=== PATIENT | female | born 1930 | race Caucasian/White ===

== ENCOUNTER → 2016-11-19 | Outpatient (CLI) | payer MEDICARE, BC ==
[~2016-11-19] MED LIST: ACET-2321 PO; ATOR40TA PO; CALC-603 PO; CHOL100017 PO; DOCU-168 PO; FERR160T11 PO; FURO20TA4 PO; LEVO100T85 PO; MAGN400C PO; METO25TA6 PO; POTA10CA37 PO; SPIR50TA26 PO; VITA-302 PO
--- NOTE | 2016-11-19 09:15 | DI ---
Indication: ITS.REASON: M79.605 PAIN IN LEFT LEG PROCEDURE: HIP LEFT 2 VIEW: Encounter: Initial Comparison: None Findings: There is no acute fracture, dislocation or malalignment identified. Severe degenerative change in the hip joint with a [id number] appearance, subchondral sclerosis and cyst formation. Large ring osteophytes on the femoral head. Arterial vascular calcifications. Impression: Severe osteoarthritis. .
== END ==
LOC: IMA 08:47
PROVIDERS: ATTEND Internal Medicine
DX: M16.12 Unilateral primary osteoarthritis, left hip (principal); M79.605 Pain in left leg

== ENCOUNTER 2017-01-13 05:17 | Inpatient (IN) ==
[~2017-01-13 05:17] MED LIST changes: -ACET-2321 PO; -ATOR40TA PO; -CALC-603 PO; -CHOL100017 PO; +CYANOCOBALAMIN (B-12) 1,000mcg/ml INJECTION IM SCH; -DOCU-168 PO; +FAMOTIDINE PREMIX 20 MG/50 ML BAG IV ONE; -FERR160T11 PO; -FURO20TA4 PO; -LEVO100T85 PO; -MAGN400C PO; -METO25TA6 PO; -POTA10CA37 PO; -SPIR50TA26 PO; -VITA-302 PO
[2017-01-13] MEDS ORDERED: ACETAMINOPHEN 500 MG TABLET PO ONE (06:00)
[2017-01-13] MEDS ORDERED: NOZIN NASAL SWAB NAS ONE ×2 (06:00→10:52)
[2017-01-13] MEDS ORDERED: ONDANSETRON 4 MG/2 ML INJECTION IVP ONE (06:00)
[2017-01-13] MEDS ORDERED: CEFAZOLIN 1 G INJECTION IVP ONE (06:00)
[2017-01-13] MEDS ORDERED: LIDOCAINE 1% (10mg/ml) 10mL MDV SQ ONE (06:00)
[2017-01-13] MEDS: LR 1,000 ML IV SCH ×2 (06:10→09:40)
[2017-01-13] MEDS ORDERED: PROPOFOL 500 MG/50 ML VIAL IV ONE ×2 (06:46→08:03)
--- NOTE | 2017-01-13 07:01 | Anesthesia Preoperative Report ---
Anesthesia Preoperative Record - Date and Time Date: 01/13/17 Preoperative Diagnosis: Primary degenerative arthritis DJD M16.12 Proposed Procedure: Left totat hip NPO Since Date: 01/13/17 NPO Since Time: 05:00 Allergies/Adverse Reactions: Allergies Allergy/AdvReac Type Severity Reaction Status Date / Time No Known Drug Allergies Allergy Verified 01/13/17 06:01 No Known Adverse Drug AdvReac Verified 01/13/17 06:01 Reactions - Vital Signs Vital Signs: Temperature 97.8 F 01/13/17 05:42 Pulse Rate 87 01/13/17 05:42 Respiratory Rate 14 01/13/17 05:42 Blood Pressure 142/72 H 01/13/17 05:42 Pulse Oximetry 94 01/13/17 05:42 Oxygen Delivery Method Room Air Height and Weight: Height 1.66 m Weight 67.5 kg Body Mass Index 24.3 - Medications Inpatient Medications: Current Medications Lactated Ringer's (Lactated Ringers) 1,000 mls @ 50 mls/hr IV .Q20H KRYSTYNA Last Admin: 01/13/17 06:10 Dose: 50 mls/hr Epinephrine HCl 0.25 mg/Bupivacaine HCl 30 ml/Morphine Sulfate 15 mg/Ketorolac Tromethamine 60 mg/Sodium Chloride 65.25 mls @ 1 mls/hr OPSITE INTRAOP ONE PRN Reason: Protocol Stop: 01/16/17 01:14 Miscellaneous Medication (Tranexamic 1gm/Ns 100 Irr Mix) 100 ml IR O ONE Stop: 01/13/17 13:44 Sodium Chloride (Iv Flush) 10 - 80 ml IVF PRN PRN PRN Reason: Flushing Home Medications: Home Medications Medication Instructions Recorded Confirmed Type Spironolactone 50 mg PO DAILY #0 12/26/11 01/13/17 History Magnesium Oxide [Magnesium] 400 mg PO DAILY #0 cap 02/11/15 01/13/17 History Vitamin B Complex [B Complex] 1 tab PO DAILY #0 10/03/15 01/13/17 History Atorvastatin [Lipitor] 1 tab PO HS #0 tab 01/17/16 01/13/17 History Docusate Sodium [Colace] 1 cap PO DAILY #0 cap 01/17/16 01/13/17 History Ferrous Sulfate, Dried [Slow 1 tab PO WB #0 tab 01/17/16 01/13/17 History Release Iron] Cholecalciferol (Vitamin D3) 1 cap PO DAILY 01/09/17 01/13/17 History [Vitamin D3] Cyanocobalamin (B-12) [Vit. B-12] 1,000 mcg IM 1 MONTH 01/09/17 01/13/17 History Levothyroxine Tab [Synthroid] 1 tab PO ACB 01/09/17 01/13/17 History Is Patient on Beta Sanjuana?: Yes - Medical History Cardiovascular: Reports: Abnormal EKG, Arrhythmia, Hypertension, High Cholesterol Neuro/Musculoskeletal: Reports: Back Problems Renal/Endocrine: Reports: Thyroid Disease - Surgical History HEENT Surgeries: Reports: Eye Surgery (Shayan Cataract surg), Tonsillectomy Cardiac Surgeries/Treatments: Reports: Pacemaker (Medtronic Mod SEDR01 Ser [id number]) Comment Only: Other [place] [facility] [place] Soto Dillon[place] GI Surgery/Treatments: Reports: Colonoscopy Anesthesia Reactions: None Hx Family Anesthesia Reaction: No History of Motion Sickness: No - Social History Smoking Status: Never smoker Hx Chewing Tobacco Use: No Second Hand Exposure: No Substance Use Type: does not use Alcohol Intake Frequency: does not drink - Pertinent Findings Laboratory: CBC and BMP 01/13/17 05:51 01/13/17 05:51 BMP 01/13/17 05:51 Sodium 143 Potassium 4.2 Chloride 104 Carbon Dioxide 27 BUN 24.0 H Creatinine 1.0 Glucose 110 Calcium 9.3 EKG Rhythm: Normal Sinus Rhythm (atrial paced) - Physical Exam Respiratory Exam: Present: lungs clear Cardiovascular Exam: Present: regular rate and rhythm, systolic murmur - Airway Assessment Mallampati Score: II TMD: 3 Fingerbreadths Neck Extension: good Teeth: chipped teeth/crowns Overall Assessment: no airway concerns - ASA ASA Score: 3 - Plan Anesthesia: General Inhalation Gases - Discussion Discussion: Discussed risks/options/alternatives of anesthesia and questions answered. Patient consents. Nursing pain assessment noted. Present for Discussion: spouse Attestation Statement: Prior to the delivery of any anesthetic medication, I examined the patient, developed the plan, obtained the patient's consent and discussed the risk and benefits of the procedure with the patient/guardian. - Additional Information Seen by Anesthesia: Yes
--- NOTE | 2017-01-13 07:07 | History & Physical Update ---
- History and Physical Update Date: 01/13/17 Update: I evaluated this patient and found no changes in the history and clinical exam findings. The treatment plan and recommendations are also unchanged from the previous documentation.
[2017-01-13] MEDS ORDERED: ROCURONIUM 50 MG/5 ML INJECTION IVP ONE (07:11)
[2017-01-13] MEDS ORDERED: SUCCINYLCHOLINE 20mg/mL 10mL INJECTION ONE (07:11)
[2017-01-13] MEDS ORDERED: FentaNYL 250 MCG/5 ML INJECTION ONE (07:20)
[2017-01-13] MEDS ORDERED: KETAMINE 500 MG/10 ML INJECTION ONE (07:30)
[2017-01-13] MEDS ORDERED: VANCOMYCIN 1,000 MG INJECTION ONE (07:39)
[2017-01-13] MEDS ORDERED: EPINEPHrine 0.25 MG, BUPIVACAINE 0.25% PF 30 ML, MORPHINE SULFATE 15 MG, KETOROLAC INJ ... OPSITE ONE (08:00)
[2017-01-13] MEDS ORDERED: HYDROMORPHONE 2 MG/ML INJECTION ONE (08:01)
[2017-01-13] MEDS ORDERED: VANCOMYCIN 1,000 MG INJECTION IAR ONE (08:04)
--- NOTE | 2017-01-13 09:16 | Operative Note ---
- Procedure Date of Admission: 01/13/17 Side: left Preoperative Diagnosis: hip primary DJD Postoperative Diagnosis: Same as preoperative diagnosis. Operation: Procedures Destruction of Ascending Colon, Via Natural or Artificial Opening Endoscopic () Destruction of Transverse Colon, Via Natural or Artificial Opening Endoscopic ( 01/17/16) Endoscopic destruction of other lesion or tissue of large intestine (02/12/15) Endoscopic polypectomy of large intestine (02/12/15) Esophagogastroduodenoscopy [EGD] with closed biopsy (02/12/15) Other endoscopy of small intestine (12/26/11) Transfusion of Nonautologous Red Blood Cells into Peripheral Vein, Percutaneous Approach (01/17/16) Transfusion of packed cells (02/12/15) Operation: total hip arthroplasty (left) Surgeon: Crystal Hutchinson MD Medical Billing Representative: DALTON Burton Complications: None. Anesthesia: General Inhalation Gases Estimated Blood Loss: See Anesthesia Record. Fluids: Please see Anesthesia Record. Description of Procedure: Mrs. Leon in the left hip were identified and marked in the preoperative holding area. She is brought back to the operating suite and placed supine on the operating table she was then placed under general anesthesia. She is then placed into a lateral decubitus position on a well-padded pegboard in the lateral position. The left lower joint was prepped and draped in my normal sterile fashion and timeout was performed. A pelvic array was placed into the iliac crest through a 2 cm incision. A direct superior approach was utilized. Approximately 12 cm incision was made in the skin and dissection carried down to the muscle fascia which was then split in line with skin incision. The piriformis was identified and detached and tagged. Capsulotomy was performed. A check point was placed in the greater trochanter. The hip was then dislocated. A femoral neck osteotomy was performed at the templated level. The head was removed and acetabulum exposed. Labrum was removed. The acetabulum was then captured and we were within 0.3 mm. The robotic arm was then used to ream with a 53 reamer and then the robot was used to place a 54 cup in 40 of tilt and 21 of anteversion. A liner was then placed. The proximal femur was exposed and prepared with a cookie cutter followed by reaming and broaching to a size 4. We trialed with a -5 and a -2.5 neck. After thorough irrigation a final Secure Fit Max size for stem was placed. Again a -2.5 felt good. A final ceramic -2.5 mm 36 mm head was placed and the hip reduced. Betadine solution was allowed to sit in the wound for 3 minutes and fully irrigated out with normal saline. Joint cocktail was injected throughout soft tissue. The capsulotomy was repaired with Ethibond. Short external rotators were also repaired with Ethibond. 1 g of vancomycin powder was placed into the wound. The muscle fascia was then repaired with #1 Vicryl. I then left my system to close the subcutaneous tissue with 2-0 Vicryl followed by running 4-0 Monocryl skin followed by Dermabond and a sterile dressing. The patient with any placed back into supine position and taken to recovery room in the care of anesthesia.
[2017-01-13] MEDS ORDERED: SUGAMMADEX 200mg/2ml INJECTION IVP ONE (09:20)
[2017-01-13] MEDS: HYDROMORPHONE 2 MG/ML INJECTION IVP PRN ×2 (10:09→10:31)
--- NOTE | 2017-01-13 10:45 | XRay Report ---
Indication: postoperative image PROCEDURE: XR pelvis w/ 1 view LT hip: Encounter: Initial Comparison: Pelvis CT dated January 02, 2017 Findings: Postoperative changes of left total hip replacement are seen. There is expected postoperative subcutaneous gas. No evidence of hardware failure or acute fracture. No retained radiopaque surgical instruments or sponges seen. Moderate to severe right hip osteoarthritis. Impression: New left total hip prosthesis without evidence of immediate complication. .
[2017-01-13] MEDS ORDERED: SPIRONOLACTONE 50 MG TABLET PO SCH (10:52)
[2017-01-13] MEDS ORDERED: DiphenhydrAMINE 25 MG CAPSULE PO PRN (10:52)
[2017-01-13] MEDS ORDERED: TRAMADOL 50 MG TABLET PO PRN (10:52)
[2017-01-13] MEDS ORDERED: DiphenhydrAMINE 50 MG/ML INJECTION IVP PRN (10:52)
[2017-01-13] MEDS ORDERED: LORazepam 1 MG TABLET PO PRN (10:52)
[2017-01-13] MEDS ORDERED: ONDANSETRON 4 MG/2 ML INJECTION IVP PRN (10:52)
[2017-01-13] MEDS: NS 1,000 ML IV SCH ×2 (11:02→22:08)
--- NOTE | 2017-01-13 11:05 | Anesthesia Postoperative Note ---
- Date and Time Date: 01/13/17 Time: 11:04 - Status Patient Participated in Evaluation: Patient Participated by Phone Vital Signs: Temperature 97.8 F 01/13/17 09:32 Pulse Rate 62 01/13/17 10:35 Respiratory Rate 17 01/13/17 10:35 Blood Pressure 176/81 H 01/13/17 10:35 Pulse Oximetry 100 01/13/17 10:35 Oxygen Delivery Method Room Air Oxygen Flow Rate 2 Respiratory Function: Airway Patent Cardiovascular Function: Regular Pulse (atrial paced) EKG Rhythm: Normal Sinus Rhythm Mental Status: Alert and Oriented Pain Intensity: 3 Hydration: Taking PO Fluids, IV Infusing Complications During Recover: None Apparent - Follow-Up Instructions Instructions: Per Surgeon
[2017-01-13] MEDS: POLYETHYL GLYCOL 3350 17gm PACKET PO SCH (12:41)
[2017-01-13] MEDS: ASPIRIN *EC* 325 MG TABLET PO SCH ×2 (12:41→21:22)
[2017-01-13] MEDS: ACETAMINOPHEN 325 MG TABLET PO SCH ×4 (12:42→21:22)
[2017-01-13] MEDS ORDERED: TRANEXAMIC ACID 1gm/NS 100ml IRR MIX IR ONE (13:43)
[2017-01-13] MEDS ORDERED: SALINE FLUSH 10ml SYRINGE IVF PRN (13:43)
[2017-01-13] MEDS: NOZIN NASAL SWAB NAS SCH ×2 (15:05→21:21)
[2017-01-13] MEDS: CEFAZOLIN 2 G in NS 100 ML IV SCH ×2 (15:10→22:09)
[2017-01-13] MEDS ORDERED: Pharmacy Consult for Fall Risk XX PRN (16:35)
[2017-01-13] MEDS: DOCUSATE SODIUM 100 MG CAPSULE PO SCH (21:22)
[2017-01-13] MEDS ORDERED: ATORVASTATIN 40 MG TABLET PO SCH (22:00)
[2017-01-13] MEDS ORDERED: SENNOSIDES 8.6 MG TABLET PO SCH (22:00)
[2017-01-14] MEDS: NS 1,000 ML IV SCH ×2 (00:34→14:32)
[2017-01-14] MEDS: NOZIN NASAL SWAB NAS SCH ×2 (05:54→13:21)
[2017-01-14] MEDS ORDERED: LEVOTHYROXINE 100 MCG TABLET PO SCH (06:30)
[2017-01-14] MEDS ORDERED: SENNOSIDES 8.6 MG TABLET PO PRN (07:23)
--- NOTE | 2017-01-14 07:37 | Orthopedic Progress Note ---
Date: Subjective/Severity of Illness: Mrs Leon is doing well. She had some nausea and dizziness last evening but that has resolved. She has not been up yet. Hoping to go [place] [facility] [place] No specific complaints this AM. Orthopedic Objective PO Vital signs: Temperature 96.6 F L 01/14/17 04:00 Pulse Rate 69 01/14/17 04:00 Respiratory Rate 16 01/14/17 04:00 Blood Pressure 159/66 H 01/14/17 04:00 Pulse Oximetry 93 01/14/17 04:00 Oxygen Delivery Method Room Air Oxygen Flow Rate 1 Height and Weight: Height 5 ft 5.5 in Weight 148 lb 12.992 oz Body Mass Index 24.3 - Constitutional General Appearance: Present: alert, no acute distress - Respiratory Exam Present: non-labored - Cardiovascular Exam Present: pedal pulses intact - Extremities Exam Extremities: Present: pulses intact - Surgical Site Incision: Mepilex dressing intact, bloody drainage present (about 5mm spot on the mid dressing that is dry.) - Neurological Exam Present: no deficits - Psychiatric Exam Present: alert - Labs Result Diagrams: 01/14/17 04:18 01/14/17 04:18 Abnormal lab results 01/14/17 01/14/17 Range/Units 04:18 04:18 RBC 3.02 L (4.00-5.20) M/MM3 Hgb 9.7 L D (12-16) GM/DL Hct 30.0 L D (36-46) % Plt Count 127 L (130-400) T/MM3 Glucose 142 H (65-110) MG/DL Calcium 8.3 L D (8.4-10.2) MG/DL H & H 01/13/17 01/14/17 Range/Units 05:51 04:18 Hgb 12.6 9.7 L D (12-16) GM/DL Hct 38.7 30.0 L D (36-46) % Orthopedic Assessment and Plan (1) Degenerative arthritis of hip Status: Acute Assessment and Plan: Aspirin protocol for VTE prophylaxis. SCD's. PT/OT services to improve independent function. Discharge Planning per Case Management. IRU consult. Hospital Course Summary Disclaimer: The visit summary below is not to be considered part of the above Progress Note.
[2017-01-14] MEDS ORDERED: FERROUS SULFATE 324 MG TABLET PO SCH (08:00)
[2017-01-14] MEDS: ASPIRIN *EC* 325 MG TABLET PO SCH (08:49)
[2017-01-14] MEDS: DOCUSATE SODIUM 100 MG CAPSULE PO SCH (08:49)
[2017-01-14] MEDS: POLYETHYL GLYCOL 3350 17gm PACKET PO SCH (08:50)
[2017-01-14] MEDS: ACETAMINOPHEN 325 MG TABLET PO SCH ×2 (08:50→13:21)
[2017-01-14] MEDS ORDERED: MAGNESIUM OXIDE 400 MG TABLET PO SCH (09:00)
[2017-01-14] MEDS ORDERED: SPIRONOLACTONE 50 MG TABLET PO SCH (09:00)
--- NOTE | 2017-01-14 14:29 | Discharge Summary ---
Orthopedic Discharge Info Date of admission: 01/13/17 05:17 Primary care physician: Gaston Trotter DO Attending Physician: Michael Hutchinson MD Consults: 01/13/17 IRU Screening [Inpatient Rehab Screening] [CONS] Routine Screen requested by:: Family/Patient Comment Text:: L GUSTAVO; POSS DC 01/14/17 01/13/17 05:37 Consult to Anesthesiology [CONS] Routine Consulting Provider: DALTON Hair Reason For Exam: Preoperative Assessment 01/13/17 10:52 Case Management Consult [CONS] Routine Reason For Exam: Discharge Planning DME-Walker [CONS] Routine Height: 5 ft 5.5 in Weight: 148 lb 12.992 oz Comment: change dressing in 2 weeks Doctor [Physician Consult] [CONS] Routine Consulting Provider: [facility] Reason For Exam: CONT CARE Ordering Provider has Notified [employer]er: Yes Total Joint Outpatient Therapy [CONS] Routine Comment: change dressing in 2 weeks - Discharge Diagnosis (1) Degenerative arthritis of hip Qualifiers: Osteoarthritis type: primary Laterality: left Qualified Code(s): M16.12 - Unilateral primary osteoarthritis, left hip Status: Acute - Procedures Procedures: Procedures Destruction of Ascending Colon, Via Natural or Artificial Opening Endoscopic () Destruction of Transverse Colon, Via Natural or Artificial Opening Endoscopic ( 01/17/16) Endoscopic destruction of other lesion or tissue of large intestine (02/12/15) Endoscopic polypectomy of large intestine (02/12/15) Esophagogastroduodenoscopy [EGD] with closed biopsy (02/12/15) Other endoscopy of small intestine (12/26/11) Transfusion of Nonautologous Red Blood Cells into Peripheral Vein, Percutaneous Approach (01/17/16) Transfusion of packed cells (02/12/15) Left GUSTAVO - Laboratory Result Diagrams: 01/14/17 04:18 01/14/17 04:18 Laboratory: Abnormal lab results 01/14/17 01/14/17 Range/Units 04:18 04:18 RBC 3.02 L (4.00-5.20) M/MM3 Hgb 9.7 L D (12-16) GM/DL Hct 30.0 L D (36-46) % Plt Count 127 L (130-400) T/MM3 Glucose 142 H (65-110) MG/DL Calcium 8.3 L D (8.4-10.2) MG/DL H & H 01/13/17 01/14/17 Range/Units 05:51 04:18 Hgb 12.6 9.7 L D (12-16) GM/DL Hct 38.7 30.0 L D (36-46) % Orthopedic Discharge HPI - HPI Comments This patient was admitted for elective surgical tx of end stage degenerative joint disease that failed to respond to conservative treatment. Further details of this is found in the admission H&P. Orthopedic Hospital Course Hospital course: 01/14/17 14:26 After appropriate preoperative clearance and signing of operative consent, the patient was given IV antibiotics, according to orthopedic protocol. The patient was taken to the operating room and underwent elective joint arthroplasty. Following surgery, antibiotics were discontinued less than 24 hours according to joint protocol. Appropriate anticoagulants were initiated and SCDs added for DVT prevention. The dressing was clean, dry, and intact. Pain control was obtained via multimodal approach. Bowel motivation addressed with scheduled and PRN medications. Early mobilization was initiated through PT services. Discharge arrangements made by a collaborative effort between the patient and Case Management. Follow-up is scheduled in 2-3 weeks. Discharge instructions given by orthopedic providers and nursing staff at discharge. Discharge condition was good. Ongoing care required?: No - Postoperative Anemia patient received IVF, labs monitored daily, no intervention required, HGB drop- acceptable Discharge Plan - Med Rec/Dispo Referrals/Follow Up: Michael Hutchinson MD [Physician] - 02/04/17 10:30 am [facility] Instructions: [facility] Postop Instructions Prescriptions: New Tramadol [Ultram] 50 - 100 mg PO Q6H PRN #60 tablet PRN Reason: Pain Aspirin *EC* [Ecotrin] 325 mg PO BID #84 tablet Acetaminophen [Tylenol] 650 mg PO QID #100 tablet Continue Spironolactone 50 mg PO DAILY #0 Magnesium Oxide [Magnesium] 400 mg PO DAILY #0 cap Metoprolol Tartrate 25 mg PO BIDWM #60 tab Docusate Sodium [Colace] 1 cap PO DAILY #0 cap Ferrous Sulfate, Dried [Slow Release Iron] 1 tab PO WB #0 tab Levothyroxine Tab [Synthroid] 1 tab PO ACB Cholecalciferol (Vitamin D3) [Vitamin D3] 1 cap PO DAILY Cyanocobalamin (B-12) [Vit. B-12] 1,000 mcg IM 1 MONTH Vitamin B Complex [B Complex] 1 tab PO DAILY #0 Atorvastatin [Lipitor] 1 tab PO HS #0 tab Discontinued Acetaminophen [Tylenol] 325 - 650 mg PO Q5H PRN #0 tab PRN Reason: DISCOMFORT - Disposition 03 To SNU Not [facility] ([facility])
--- NOTE | 2017-01-14 14:37 | Extended Care Facility Orders ---
Admission Orders Admit to:: [facility] Allergies/Adverse Reactions: Allergies No Known Drug Allergies Allergy (Verified 01/13/17 06:01) No Known Adverse Drug Reactions Adverse Reaction (Verified 01/13/17 06:01) Admitting Diagnosis: Primary degenerative arthritis DJD M16.12 Admitting Physician: Michael Hutchinson MD Attending Physician: Michael Hutchinson MD Anticiapted Length of Stay: 30 days or less Rehab Potential: good Rehab Prognosis: good Diet: 01/13/17 Lunch Regular Diet [DIET] Diet Modifications: May use Facility Protocol or Standing Orders: Yes May have flu vaccine: Yes Evaluations/Treatment: PT (full hip precautions), OT (full hip precautions) [facility] Certification: I certify that SNF services are required to be given on an Inpatient basis because of the patients need for care home care on a continuing basis for the condition(s) for which he/she received inpatient hospital services prior to his/her transfer to the SNF. SNF inpatient care is necessary for the following reasons Indication for [facility]: Postop Assessment Care - Additional Information In Event of Arrest: Start CPR,call 911,send patient to the ER Referrals: Michael Hutchinson MD [Physician] - 02/04/17 10:30 am Additional Orders: REGULAR DIET. WEIGHT BEARING TOLERATED
[2017-01-15] MEDS ORDERED: BISACODYL 10 MG SUPPOSITORY RECTALLY SCH (20:00)
== END 2017-01-14 15:30 | DRG 470 ==
LOC: SRG 05:17
PROVIDERS: ADMIT Orthopaedic Surgery; ATTEND Orthopaedic Surgery